=== PATIENT | female | born 1940 | race Caucasian/White ===

== ENCOUNTER 2018-05-06 00:52 | Inpatient (IN) | payer MEDICARE ==
[~2018-05-06] VITALS: Ht 160 cm; Wt 67.4 kg
[2018-05-06] VITALS (10 sets, daily range): BP systolic 142–154; BP diastolic 55–82
[~2018-05-06 00:52] MED LIST: ASPI-1265 PO; LOP25T PO; SIMV20TA5 PO
[2018-05-06] MEDS ORDERED: ATOR20TA PO (01:04)
[2018-05-06] MEDS ORDERED: LISI-600 PO (01:04)
[2018-05-06 01:12] LABS: BASOPHILS # (AUTO) 0.1 X10'3 (0-0.2); EOSINOPHILS # (AUTO) 0.2 X10'3 (0-0.9); EOSINOPHILS % (AUTO) 2.3 % (0-6); HEMATOCRIT 45.8 % (35.0-45.0); HEMOGLOBIN 14.8 g/dl (12.0-16.0); LYMPHOCYTES # (AUTO) 2.5 X10'3 (1.1-4.8); LYMPHOCYTES % (AUTO) 36.8 % (21-51); MEAN CORPUSCULAR HEMOGLOBIN 29.5 PG (27.0-31.0); MEAN CORPUSCULAR HGB CONC 32.2 % (33.0-36.5); MEAN CORPUSCULAR VOLUME 91.5 FL (78-98); MEAN PLATELET VOLUME 10.9 FL (7.4-10.4); MONOCYTES # (AUTO) 0.7 X10'3 (0-0.9); NEUTROPHILS # (AUTO) 3.3 X10'3 (1.8-7.7); NEUTROPHILS % (AUTO) 49.9 % (42-75); PLATELET COUNT 134 X10'3 (140-440); RED BLOOD COUNT 5.01 X10'6 (4.20-5.60); WHITE BLOOD COUNT 6.8 X10'3 (4.5-11.0)
[2018-05-06 01:21] LABS: PARTIAL THROMBOPLASTIN TIME 24 SECONDS (22-32); PROTHROMBIN TIME 10.3 SECONDS (9.0-12.0)
[2018-05-06 01:23] LABS: ALANINE AMINOTRANSFERASE 30 U/L (12-78); ALBUMIN 3.9 G/DL (3.4-5.0); ALBUMIN/GLOBULIN RATIO 1.1 (1.1-1.5); ALKALINE PHOSPHATASE 105 IU/L (46-116); ANION GAP 9 (8-16); ASPARTATE AMINO TRANSFERASE 21 U/L (10-37); BILIRUBIN,TOTAL 0.4 MG/DL (0.1-1.0); BLOOD UREA NITROGEN 29 MG/DL (7-18); BUN/CREATININE RATIO 26.1 (6.6-38.0); CALCIUM 10.6 MG/DL (8.5-10.1); CHLORIDE 104 MMOL/L (99-107); CREATININE 1.11 MG/DL (0.40-0.90); GLUCOSE 107 MG/DL (70-104); SODIUM 140 MMOL/L (135-145); TOTAL CARBON DIOXIDE 27.3 MMOL/L (24-32); TOTAL PROTEIN 7.3 G/DL (6.4-8.2); eGFR 48 ML/MIN
[2018-05-06] MEDS ORDERED: aspirin 81mg tab.chew PO ONE ×2 (01:40→02:05)
[2018-05-06] MEDS ORDERED: diphenhydrAMINE 25mg capsule PO PRN (02:05)
[2018-05-06] MEDS ORDERED: metoprolol tartrate 1mg/ml inj IV PRN (02:05)
[2018-05-06] MEDS ORDERED: HYDROcodone/acetaminophen 10/325mg tab PO PRN (02:05)
[2018-05-06] MEDS ORDERED: ondansetron/PF 4mg/2ml inj IV PRN (02:05)
[2018-05-06] MEDS ORDERED: acetaminophen 325mg tablet PO PRN ×2 (02:05)
[2018-05-06] MEDS ORDERED: acetaminophen 650mg rectal suppository RC PRN (02:05)
[2018-05-06] MEDS ORDERED: nitroGLYCERIN 0.4mg SUBLingual tab SL PRN (02:05)
[2018-05-06] MEDS ORDERED: regadenoson 0.4mg/5ml syringe IV ONE ×3 (02:05→10:40)
[2018-05-06] MEDS ORDERED: bisacodyl 10mg suppository rectal RC PRN (02:05)
[2018-05-06] MEDS ORDERED: diphenhydrAMINE 50 mg/ml inj IV PRN (02:05)
[2018-05-06] MEDS ORDERED: metoclopramide 5 mg/ml inj IV PRN (02:05)
[2018-05-06] MEDS ORDERED: morphine 4 MG/ML inj SYRINge IV PRN ×2 (02:05)
[2018-05-06] MEDS ORDERED: CAFFEINE CITRATE 60 MG/3 ML injection vial IV PRN (02:05)
[2018-05-06] MEDS ORDERED: magnesium hydroxide 30ml (MOM) UD suspension PO PRN (02:05)
[2018-05-06] MEDS ORDERED: HYDROmorphone inj. 0.5 MG/0.5 ML DISP.SYRIN IV PRN ×2 (02:05)
[2018-05-06] MEDS ORDERED: HYDROcodone/acetaminophen 5mg/325mg tablet PO PRN (02:05)
[2018-05-06] MEDS ORDERED: mag hydrox/Alum hydrox/simeth 30ml oral suspension PO PRN (02:05)
[2018-05-06 02:30] LABS: MAGNESIUM 2.1 MG/DL (1.5-2.4)
[2018-05-06] MEDS: dextrose 5%-1/2 normal saline 1,000 ML IV SCH ×2 (02:32→12:19)
[2018-05-06 02:51] LABS: HEMOGLOBIN A1C 5.6 % (4.5-6.2)
[2018-05-06] MEDS ORDERED: pantoprazole 40mg Tablet.DR PO SCH (07:30)
[2018-05-06] MEDS: nitroGLYCERIN 0.2mg/hour patch TD SCH (07:49)
[2018-05-06] MEDS ORDERED: metoprolol tartrate 12.5mg (1/2 tablet) PO SCH (08:00)
[2018-05-06] MEDS ORDERED: docusate sod 100mg capsule PO SCH (08:00)
[2018-05-06] MEDS ORDERED: enoxaparin 60mg/0.6ml syringe SUBCUT SCH (08:00)
[2018-05-06] MEDS ORDERED: levoFLOXACIN-Levaquin 750MG/D5 150 ML IV SCH (08:45)
[2018-05-06] MEDS ORDERED: CAFFEINE CITRATE 60 MG/3 ML injection vial IV ONE (10:33)
[2018-05-06] MEDS ORDERED: regadenoson 0.4mg/5ml syringe IV PRN (11:06)
[2018-05-06] MEDS ORDERED: levoFLOXACIN 750MG TABLET PO SCH ×2 (12:00→15:16)
[2018-05-06] MEDS ORDERED: LEVO750T46 PO (14:36)
[2018-05-06] MEDS ORDERED: lactobacillus rhamnosus 10,000 MMU CELLS/CAPSULE PO SCH (20:00)
[2018-05-06] MEDS ORDERED: temazepam 15mg capsule PO PRN (21:00)
[2018-05-07] MEDS ORDERED: atorvastatin 10mg tablet PO SCH (08:00)
== END 2018-05-06 15:30 | disposition home or self-care (01) | DRG 682 ==
LOC: ER 00:52 → ED HOLD 02:03 → PCU 3S 02:59
PROVIDERS: ADMIT Family Medicine; ATTEND Internal Medicine
PROC: 4A02XM4 Measurement of Cardiac Total Activity, External Approach (ICD-10-PCS; principal; 2018-05-06)
PROC: 3E073KZ Introduction of Other Diagnostic Substance into Coronary Artery, Percutaneous Approach (ICD-10-PCS; 2018-05-06)
DX: N17.9 Acute kidney failure, unspecified (principal); J18.9 Pneumonia, unspecified organism; I10 Essential (primary) hypertension; E78.5 Hyperlipidemia, unspecified; E78.00 Pure hypercholesterolemia, unspecified; I25.10 Atherosclerotic heart disease of native coronary artery without angina pectoris; Z95.1 Presence of aortocoronary bypass graft; Z90.710 Acquired absence of both cervix and uterus; Z90.49 Acquired absence of other specified parts of digestive tract; Z88.8 Allergy status to other drugs, medicaments and biological substances; Z79.899 Other long term (current) drug therapy; Z79.82 Long term (current) use of aspirin
CPT/HCPCS: 36415; 71045; 78452; 80053; 83036; 83735; 83880; 84484; 85025; 85610; 85730; 87070; 93005; 93017; 99285; A9500; J1650

== ENCOUNTER 2020-12-25 10:15 | Emergency (ER) | payer MEDICARE ==
[~2020-12-25] VITALS: Ht 160 cm; Wt 6.6 kg
[~2020-12-25 10:15] MED LIST changes: +ATOR20TA PO; +LEVO750T46 PO; +LISI20TA28 PO; -LOP25T PO; -SIMV20TA5 PO
[2020-12-25 11:22] LABS: CLARITY,URINE SLIGHTLY CLOUDY (Clear); COLOR,URINE YELLOW (Yellow); GLUCOSE, URINE NEGATIVE (Neg); KETONES,URINE NEGATIVE (Neg); LEUKOCYTE ESTERASE ,URINE NEGATIVE (Neg); NITRITES, URINE NEGATIVE (Neg); OCCULT BLOOD,URINE NEGATIVE (Neg); PROTEIN,URINE NEGATIVE (Neg); UA COLLECTION TYPE CLN CATCH MIDSTREAM; UROBILINOGEN,URINE 0.2 E.U/dL (0.2-1.0)
[2020-12-25 11:31] LABS: SQUAMOUS EPITHELIAL CELL,UR MODERATE /LPF (FEW)
[2020-12-25 11:31] LABS: BASOPHILS # (AUTO) 0.1 X10'3 (0-0.2); BASOPHILS % (AUTO) 0.6 % (0-1); EOSINOPHILS # (AUTO) 0.1 X10'3 (0-0.9); HEMATOCRIT 43.6 % (35.0-45.0); HEMOGLOBIN 14.5 g/dl (12.0-16.0); LYMPHOCYTES # (AUTO) 1.7 X10'3 (1.1-4.8); LYMPHOCYTES % (AUTO) 20.5 % (21-51); MEAN CORPUSCULAR HEMOGLOBIN 30.1 PG (27.0-31.0); MEAN CORPUSCULAR HGB CONC 33.2 g/dL (33.0-36.5); MEAN CORPUSCULAR VOLUME 90.5 FL (78-98); MEAN PLATELET VOLUME 10.4 FL (7.4-10.4); MONOCYTES # (AUTO) 0.9 X10'3 (0-0.9); MONOCYTES % (AUTO) 10.7 % (2-12); NEUTROPHILS # (AUTO) 5.5 X10'3 (1.8-7.7); NEUTROPHILS % (AUTO) 67.2 % (42-75); PLATELET COUNT 141 X10'3 (140-440); RED BLOOD COUNT 4.81 X10'6 (4.20-5.60); RED CELL DISTRIBUTION WIDTH 13.9 % (11.5-14.5); WHITE BLOOD COUNT 8.2 X10'3 (4.5-11.0)
[2020-12-25 11:33] LABS: WBC,URINE 0-4 /HPF (0-4)
[2020-12-25 11:34] LABS: BACTERIA,URINE FEW /HPF (Neg)
[2020-12-25 11:37] LABS: MUCUS STRANDS FEW /LPF (Neg); RBC,URINE 0-2 /HPF (0-2)
[2020-12-25 11:48] LABS: ALANINE AMINOTRANSFERASE 28 U/L (12-78); ALBUMIN 3.7 G/DL (3.4-5.0); ALBUMIN/GLOBULIN RATIO 1.2 (1.1-1.5); ALKALINE PHOSPHATASE 86 IU/L (46-116); ANION GAP 9 (8-16); ASPARTATE AMINO TRANSFERASE 17 U/L (10-37); BILIRUBIN,TOTAL 0.5 MG/DL (0.1-1.0); BLOOD UREA NITROGEN 30 MG/DL (7-18); BUN/CREATININE RATIO 28.8 (6.6-38.0); CALCIUM 11.4 MG/DL (8.5-10.1); CHLORIDE 107 MMOL/L (99-107); CREATININE 1.04 MG/DL (0.40-0.90); GLUCOSE 91 MG/DL (70-104); POTASSIUM 4.1 MMOL/L (3.5-5.1); SODIUM 145 MMOL/L (135-145); TOTAL CARBON DIOXIDE 29.3 MMOL/L (24-32); TOTAL PROTEIN 6.9 G/DL (6.4-8.2); eGFR 51 ML/MIN
[2020-12-25 12:40] VITALS: BP 155/67
== END 2020-12-25 13:04 | disposition home or self-care (01) ==
LOC: ER 10:15
DX: R10.32 Left lower quadrant pain (principal); I25.10 Atherosclerotic heart disease of native coronary artery without angina pectoris; E78.00 Pure hypercholesterolemia, unspecified; I10 Essential (primary) hypertension; Z90.49 Acquired absence of other specified parts of digestive tract; Z98.61 Coronary angioplasty status; Z90.710 Acquired absence of both cervix and uterus; Z79.82 Long term (current) use of aspirin; Z79.2 Long term (current) use of antibiotics; Z79.899 Other long term (current) drug therapy; Z88.8 Allergy status to other drugs, medicaments and biological substances
CPT/HCPCS: 36415; 74176; 80053; 81001; 84145; 85025; 99284

== ENCOUNTER 2021-02-07 11:41 | Emergency (ER) | payer MEDICARE ==
[~2021-02-07] VITALS: Ht 160 cm; Wt 65.9 kg
--- NOTE | 2021-02-07 12:20 | NUR ---
GERBER [phone]
[2021-02-07 12:41] LABS: BASOPHILS % (AUTO) 0.4 % (0-1); EOSINOPHILS # (AUTO) 0.1 X10'3 (0-0.9); HEMATOCRIT 41.9 % (35.0-45.0); HEMOGLOBIN 14.2 g/dl (12.0-16.0); LYMPHOCYTES # (AUTO) 1.9 X10'3 (1.1-4.8); MEAN CORPUSCULAR HGB CONC 33.8 g/dL (33.0-36.5); MEAN CORPUSCULAR VOLUME 91.7 FL (78-98); MEAN PLATELET VOLUME 10.1 FL (7.4-10.4); MONOCYTES # (AUTO) 0.7 X10'3 (0-0.9); MONOCYTES % (AUTO) 10.6 % (2-12); NEUTROPHILS # (AUTO) 4.2 X10'3 (1.8-7.7); PLATELET COUNT 118 X10'3 (140-440); RED BLOOD COUNT 4.57 X10'6 (4.20-5.60); RED CELL DISTRIBUTION WIDTH 13.9 % (11.5-14.5)
[2021-02-07] MEDS ORDERED: aspirin 81mg tab.chew PO ONE (12:55)
[2021-02-07 12:58] LABS: ALANINE AMINOTRANSFERASE 25 U/L (12-78); ALBUMIN 3.7 G/DL (3.4-5.0); ALBUMIN/GLOBULIN RATIO 1.2 (1.1-1.5); ALKALINE PHOSPHATASE 82 IU/L (46-116); ANION GAP 5 (8-16); ASPARTATE AMINO TRANSFERASE 19 U/L (10-37); BILIRUBIN,TOTAL 0.6 MG/DL (0.1-1.0); BLOOD UREA NITROGEN 24 MG/DL (7-18); BUN/CREATININE RATIO 22.6 (6.6-38.0); CHLORIDE 107 MMOL/L (99-107); CREATININE 1.06 MG/DL (0.40-0.90); GLUCOSE 95 MG/DL (70-104); SODIUM 142 MMOL/L (135-145); TOTAL PROTEIN 6.9 G/DL (6.4-8.2); eGFR 50 ML/MIN
--- NOTE | 2021-02-07 14:47 | NUR ---
no chest pain at this time.call light within reach.
[2021-02-07 16:19] VITALS: BP 144/71
== END 2021-02-07 16:20 | disposition home or self-care (01) ==
LOC: ER 11:41
DX: R07.89 Other chest pain (principal); R42 Dizziness and giddiness; R53.83 Other fatigue; I25.10 Atherosclerotic heart disease of native coronary artery without angina pectoris; Z95.1 Presence of aortocoronary bypass graft; E78.00 Pure hypercholesterolemia, unspecified; I10 Essential (primary) hypertension; Z90.49 Acquired absence of other specified parts of digestive tract; Z90.710 Acquired absence of both cervix and uterus; Z88.8 Allergy status to other drugs, medicaments and biological substances; Z88.2 Allergy status to sulfonamides; Z79.899 Other long term (current) drug therapy; Z79.82 Long term (current) use of aspirin
CPT/HCPCS: 36415; 71045; 80053; 83880; 84484; 85025; 93005; 99285

== ENCOUNTER 2021-05-10 18:25 | Emergency (ER) | payer MEDICARE ==
[~2021-05-10] VITALS: Ht 160 cm; Wt 65.9 kg
[2021-05-10] MEDS ORDERED: proparacaine 0.5% ophthalmic drops 15ml EACHEYE ONE (19:35)
--- NOTE | 2021-05-10 19:53 | NUR ---
pt is back from CT, amb with steady gait to restroom
--- NOTE | 2021-05-10 20:08 | NUR ---
PT IS 80 YO FEMALE C/O "THROBBING" TO LEFT SIDE OF FACE AND EYE, WOKE UP WITH PAIN TODAY, SENSITIVE TO LIGHT, VISION IS "FUZZY", +NAUSEA, RECEIVES A SHOT TO LEFT EYE ONCE A MONTH FOR PAST 2 YEARS FOR VEIN OCCLUSION, NO COMPLICATIONS EVER, PT RECEIVED SHOT ON MAY 07, TRIED CALLING EYE DOCTOR, NO ANSWER.
[2021-05-10 20:12] VITALS: BP 165/75
== END 2021-05-10 20:28 | disposition home or self-care (01) ==
LOC: ER 18:25
DX: H57.12 Ocular pain, left eye (principal); R51.9 Headache, unspecified; I25.10 Atherosclerotic heart disease of native coronary artery without angina pectoris; E78.00 Pure hypercholesterolemia, unspecified; I10 Essential (primary) hypertension; Z90.49 Acquired absence of other specified parts of digestive tract; Z95.5 Presence of coronary angioplasty implant and graft; Z90.710 Acquired absence of both cervix and uterus; Z88.1 Allergy status to other antibiotic agents; Z88.2 Allergy status to sulfonamides; Z88.8 Allergy status to other drugs, medicaments and biological substances; Z79.82 Long term (current) use of aspirin; Z79.2 Long term (current) use of antibiotics; Z79.899 Other long term (current) drug therapy
CPT/HCPCS: 70450; 99284

== ENCOUNTER 2021-11-19 08:08 | Observation (INO) | payer MEDICARE ==
[~2021-11-19] VITALS: Ht 160 cm; Wt 65.7 kg
[2021-11-19 09:44] LABS: BASOPHILS % (AUTO) 0.6 % (0-1); EOSINOPHILS # (AUTO) 0.2 X10'3 (0-0.9); EOSINOPHILS % (AUTO) 2.7 % (0-6); HEMATOCRIT 44.8 % (35.0-45.0); LYMPHOCYTES # (AUTO) 1.6 X10'3 (1.1-4.8); LYMPHOCYTES % (AUTO) 24.8 % (21-51); MEAN CORPUSCULAR HEMOGLOBIN 30.3 PG (27.0-31.0); MEAN CORPUSCULAR HGB CONC 33.5 g/dL (33.0-36.5); MEAN CORPUSCULAR VOLUME 90.4 FL (78-98); MEAN PLATELET VOLUME 10.2 FL (7.4-10.4); MONOCYTES # (AUTO) 0.7 X10'3 (0-0.9); MONOCYTES % (AUTO) 10.6 % (2-12); NEUTROPHILS % (AUTO) 61.3 % (42-75); PLATELET COUNT 146 X10'3 (140-440); RED BLOOD COUNT 4.96 X10'6 (4.20-5.60); RED CELL DISTRIBUTION WIDTH 14.4 % (11.5-14.5); WHITE BLOOD COUNT 6.6 X10'3 (4.5-11.0)
[2021-11-19 10:01] LABS: ALANINE AMINOTRANSFERASE 29 U/L (12-78); ALBUMIN 3.8 G/DL (3.4-5.0); ALBUMIN/GLOBULIN RATIO 1.1 (1.1-1.5); ALKALINE PHOSPHATASE 59 IU/L (46-116); ANION GAP 10 (8-16); ASPARTATE AMINO TRANSFERASE 24 U/L (10-37); BILIRUBIN,TOTAL 0.6 MG/DL (0.1-1.0); BLOOD UREA NITROGEN 29 MG/DL (7-18); BUN/CREATININE RATIO 24.4 (6.6-38.0); CALCIUM 10.6 MG/DL (8.5-10.1); CHLORIDE 106 MMOL/L (99-107); CREATININE 1.19 MG/DL (0.40-0.90); GLUCOSE 100 MG/DL (70-104); POTASSIUM 4.1 MMOL/L (3.5-5.1); SODIUM 142 MMOL/L (135-145); TOTAL CARBON DIOXIDE 26.2 MMOL/L (24-32); TOTAL PROTEIN 7.2 G/DL (6.4-8.2); eGFR 44 ML/MIN
[2021-11-19] MEDS ORDERED: iohexol 350MG/ML 100ml bottle IV ONE (11:03)
--- NOTE | 2021-11-19 11:35 | NUR ---
Patient ambulates to restroom without assistance; gait steady.
[2021-11-19] MEDS ORDERED: CLON0.1T2 PO (11:40)
--- NOTE | 2021-11-19 11:45 | NUR ---
Patient reports chest pain has subsided; back pain persists.
[2021-11-19] MEDS ORDERED: morphine 2 MG/ML inj. syringe IV PRN ×2 (12:55)
[2021-11-19] MEDS ORDERED: regadenoson 0.4mg/5ml syringe IV PRN (12:55)
[2021-11-19] MEDS ORDERED: nitroGLYCERIN 0.4mg SUBLingual tab SL PRN ×2 (12:55→15:35)
[2021-11-19] MEDS ORDERED: aminophylline 250mg/10ml inj. IV PRN (12:55)
[2021-11-19] MEDS ORDERED: mag hydrox/Alum hydrox/simeth 30ml oral suspension PO PRN (12:55)
[2021-11-19] MEDS ORDERED: magnesium hydroxide 30ml (MOM) UD suspension PO PRN (12:55)
[2021-11-19] MEDS ORDERED: metoprolol tartrate 1mg/ml inj IV PRN (12:55)
[2021-11-19] MEDS ORDERED: acetaminophen 325mg tablet PO PRN ×2 (12:55)
[2021-11-19] MEDS ORDERED: ondansetron/PF 4mg/2ml inj IV PRN (12:55)
[2021-11-19] MEDS ORDERED: TRIA15CR61 TOP (13:09)
[2021-11-19] MEDS ORDERED: NITR0.4T51 SL (13:09)
[2021-11-19] MEDS ORDERED: LISI10TA27 PO (13:09)
[2021-11-19] MEDS ORDERED: AZEL137S4 BOTHNARES (13:09)
--- NOTE | 2021-11-19 14:38 | NUR ---
Patient ineligible for stress test today due to coffee consumption this morning. Patient states she would like to go home and come back in the morning for stress test; Dr. Bateman paged.
[2021-11-19] MEDS: cloNIDine 0.1 mg tablet PO SCH (20:14)
[2021-11-19] MEDS: docusate sod 100mg capsule PO SCH (20:14)
--- NOTE | 2021-11-19 21:17 | NUR ---
ATTEMPTED TO GIVE REPORT TO RN. RN WILL CALL BACK IN 10 MINUTES.
--- NOTE | 2021-11-19 21:53 | NUR ---
NO CALL RECIEVED. ATTEMPTED TO GIVE REPORT AGAIN. UNABLE TO REACH RN.
--- NOTE | 2021-11-19 21:59 | NUR ---
GAVE REPORT. PT WILL BE TAKEN UP ON A MONITOR.
--- NOTE | 2021-11-19 22:40 | NUR ---
Report received from GIOVANNA Camacho from ER regarding the patient, DARIO GROVE, 81 y/o, F admitted by YOANNA CAMPOS MD, was given written information regarding hospital policies, unit procedures and contact persons. Patient denies chest pain. No distress noted. Vital signs stable: Temp: 97.7, HR: 76, Resp: 18, O2Sat: 95%, BP: 116/63. See Admission information.
[2021-11-20] VITALS (13 sets, daily range): BP systolic 122–169; BP diastolic 47–78
[2021-11-20 06:06] LABS: BASOPHILS # (AUTO) 0.1 X10'3 (0-0.2); BASOPHILS % (AUTO) 0.8 % (0-1); EOSINOPHILS # (AUTO) 0.2 X10'3 (0-0.9); EOSINOPHILS % (AUTO) 3.4 % (0-6); HEMATOCRIT 42.5 % (35.0-45.0); HEMOGLOBIN 14.3 g/dl (12.0-16.0); LYMPHOCYTES % (AUTO) 29.1 % (21-51); MEAN CORPUSCULAR HEMOGLOBIN 30.1 PG (27.0-31.0); MEAN CORPUSCULAR HGB CONC 33.6 g/dL (33.0-36.5); MEAN CORPUSCULAR VOLUME 89.7 FL (78-98); MEAN PLATELET VOLUME 10.5 FL (7.4-10.4); MONOCYTES # (AUTO) 0.8 X10'3 (0-0.9); MONOCYTES % (AUTO) 12.3 % (2-12); NEUTROPHILS # (AUTO) 3.8 X10'3 (1.8-7.7); NEUTROPHILS % (AUTO) 54.4 % (42-75); PLATELET COUNT 144 X10'3 (140-440); RED BLOOD COUNT 4.74 X10'6 (4.20-5.60); RED CELL DISTRIBUTION WIDTH 14.7 % (11.5-14.5); WHITE BLOOD COUNT 6.9 X10'3 (4.5-11.0)
--- NOTE | 2021-11-20 06:27 | NUR ---
Patient in room PCU 3015. I have received report from Xenia HEREDIA and had the opportunity to ask questions and assume patient care.
[2021-11-20 06:29] LABS: ALBUMIN 3.5 G/DL (3.4-5.0); ANION GAP 12 (8-16); BLOOD UREA NITROGEN 37 MG/DL (7-18); BUN/CREATININE RATIO 31.1 (6.6-38.0); CALCIUM 10.2 MG/DL (8.5-10.1); CHLORIDE 108 MMOL/L (99-107); CREATININE 1.19 MG/DL (0.40-0.90); GLUCOSE 100 MG/DL (70-104); POTASSIUM 3.9 MMOL/L (3.5-5.1); SODIUM 144 MMOL/L (135-145); TOTAL CARBON DIOXIDE 24.3 MMOL/L (24-32); eGFR 44 ML/MIN
--- NOTE | 2021-11-20 06:34 | NUR ---
Problems reprioritized. Patient report given, questions answered & plan of care reviewed with GIOVANNA Lei.
[2021-11-20] MEDS ORDERED: atorvastatin 20mg tablet PO SCH (08:00)
[2021-11-20] MEDS ORDERED: lisinopril 10 MG tablet PO SCH (08:00)
[2021-11-20] MEDS: docusate sod 100mg capsule PO SCH (09:53)
[2021-11-20] MEDS: cloNIDine 0.1 mg tablet PO SCH (09:54)
== END 2021-11-20 14:15 | disposition home or self-care (01) ==
LOC: ER 08:08 → ED HOLD 12:56 → PCU 3S 22:10
PROVIDERS: ADMIT Internal Medicine; ATTEND Internal Medicine
DX: R07.89 Other chest pain (principal); I25.10 Atherosclerotic heart disease of native coronary artery without angina pectoris; I24.9 Acute ischemic heart disease, unspecified; E78.00 Pure hypercholesterolemia, unspecified; I10 Essential (primary) hypertension; E27.8 Other specified disorders of adrenal gland; K76.0 Fatty (change of) liver, not elsewhere classified; Z90.49 Acquired absence of other specified parts of digestive tract; Z90.710 Acquired absence of both cervix and uterus; Z95.1 Presence of aortocoronary bypass graft; Z88.2 Allergy status to sulfonamides; Z88.8 Allergy status to other drugs, medicaments and biological substances; Z91.011 Allergy to milk products; Z79.899 Other long term (current) drug therapy; Z87.891 Personal history of nicotine dependence
CPT/HCPCS: 36415; 71045; 71275; 74174; 78452; 80048; 80053; 83880; 84484; 85025; 87081; 87635; 93005; 93017; 99285; A9500; C9803; G0378; J2785; Q9967

== ENCOUNTER 2023-08-27 08:55 | Outpatient (CLI) | payer MEDICARE ==
[~2023-08-27 08:55] MED LIST changes: -ASPI-1265 PO; +AZEL137S4 BOTHNARES; +CLON0.1T2 PO; -LEVO750T46 PO; +LISI10TA27 PO; -LISI20TA28 PO; +NITR0.4T51 SL; +TRIA15CR61 TOP; +iohexol 300mg/ml 100ml inj. ONE
== END 2023-08-27 23:59 | disposition home or self-care (01) ==
LOC: RAD 08:55
PROVIDERS: ATTEND Family Medicine
DX: K52.9 Noninfective gastroenteritis and colitis, unspecified (principal); R10.9 Unspecified abdominal pain; Z90.49 Acquired absence of other specified parts of digestive tract
CPT/HCPCS: 74177; J3490; Q9967

== ENCOUNTER 2025-03-12 02:53 | Emergency (ER) | payer MEDICARE ==
[~2025-03-12] VITALS: Ht 160 cm; Wt 65.9 kg
[~2025-03-12 02:53] MED LIST changes: -iohexol 300mg/ml 100ml inj. ONE
--- NOTE | 2025-03-12 03:46 | Physician Documentation ---
History of Present Illness ~ Chief Complaint: Wrist pain Stated Complaint: HURT WRIST Time Seen by MD: 03:45 Primary Medical Doctor: Hakan Otoole HPI 84-year-old female who presents with left wrist pain. She tells me that earlier this evening, she was carrying things in her hands, and try to open a sliding door with her left wrist and hand. Following this she developed pain in the left wrist. She reports generalized pain diffusely in the wrist, worse with movement and palpation. The wrist feels swollen. She tried ice, topical treatments and a dose of Mobic. She states the pain was too bad the sleep. She tried using a wrist brace. She denies any other associated injuries or concerns. No fevers or infectious symptoms. No numbness or weakness to the hand. She is left-handed. Tetanus within 5 years: No (UNK) Medication Reconciliation Allergies: Coded Allergies: Metronidazole HCl (Verified Allergy, Intermediate, HIVES, 05/06/18) alendronate sodium (Verified Allergy, Intermediate, ITCHING,ACHING MUSCLES, 05/06/18) lactose (Verified Allergy, Intermediate, runny, diarrhea, cramping, 05/06/18) ciprofloxacin HCl (Verified Allergy, Mild, ITCHING, 05/06/18) Sulfa (Sulfonamide Antibiotics) (Unverified Allergy, Unknown, 02/07/21) levofloxacin (Unverified Allergy, Unknown, 02/07/21) Scheduled Atorvastatin Calcium* (Lipitor*), 1 TABLET PO DAILY, (Reported) Clonidine HCl (Clonidine HCl), 1 TAB PO BID, (Reported) Lisinopril (Lisinopril), 1 TAB PO DAILY, (Reported) Triamcinolone Acetonide 0.5% Crm* (Kenalog 0.5% Crm*), 1 APPLIC TOP BID, (Reported) Scheduled PRN Azelastine HCl (Azelastine HCl), 1 SPRAY BOTHNARES BID PRN for NASAL CONGESTION, (Reported) Nitroglycerin SL* (Nitrostat SL*), 1 TAB SL Q5MIN PRN for Chest pain Q5min PRNx3-call MD, (Reported) Past Medical History Past Medical History: Coronary Artery Disease, High Cholesterol, Hypertension, Diverticulitis Past Surgical History: cholecystectomy, colectomy, coronary bypass surgery, hysterectomy Alcohol Use: None Drug Use: none Lives In: Home Review of Systems Constitutional: Denies: fever Musculoskeletal: Reports: joint pain, joint swelling Physical Exam Vital Signs: Temperature: 98.0, Heart Rate: 58, Respiratory Rate: 16, BP: 176/80, Pulse Oximetry: 98, Weight: 65.910 Oxygen Flow Rate: 0 Physical Exam General: This is a pleasant and overall well-appearing elderly female, at bedside Heart: Regular rate and rhythm, normal-appearing peripheral perfusion Lungs: normal work of breathing, normal oxygen saturation on room air Extremities: Warm and well-perfused Left upper extremity: The patient has tenderness to palpation diffusely around the left wrist including on the radial and ulnar side. She seems the most tender at the base of the thumb on the radial side. No significant surrounding erythema or other skin changes. No focal bony point tenderness on palpation of the bones of the elbow, or hand. No snuffbox tenderness. Sensation grossly intact to light touch in the hand. Neuro: Alert and oriented, no focal deficits Psychiatric: Calm and cooperative with exam Progress Results/Orders Results/Orders Orders - LOIDA WATKINS MD Wrist, Complete (3vw Min) (03/12/25 03:20) Completed Orders - LOIDA WATKINS MD Wrist, Complete (3vw Min) (03/12/25 03:20) Hydrocodone/Apap 5/325mg Tab ([place] 5/32 (03/12/25 04:35) Acetaminophen 325mg Tablet (Tylenol Tabl (03/12/25 04:35) Medications Received in ER Medications (Trade) Dose Ordered Sig/Soto Route PRN Reason Start Time Stop Time Status Last Admin Dose Admin ([place] 5/325mg tablet) 1 tab ONCE ONCE PO 03/12/25 04:35 03/12/25 04:36 DC 03/12/25 04:38 1 TAB (Tylenol tablet) 650 mg ONCE ONCE PO 03/12/25 04:35 03/12/25 04:36 DC 03/12/25 04:38 650 MG Vital Signs 03/12/25 02:57 Temp 98.0 Pulse 58 Resp 16 B/P (MAP) 176/80 Pulse Ox 98 O2 Flow Rate 0 EKG/XRAY/CT/US/VASC/MRI Bone/Soft Tissue X-Ray (Ext.) : Additional Comment I personally reviewed the x-ray, and it shows: No acute fracture or dislocation. She does have joint space narrowing at the base of the thumb. Medical Decision Making Additional Comment Differential includes wrist sprain, fracture, dislocation, chronic arthritis, arthritis flare, doubt septic arthritis Assessment The patient presents with generalized left wrist pain and swelling after a nontraumatic event. On exam she has findings consistent with a wrist sprain. No findings to suggest an infection or septic arthritis. X-ray does not show a fracture other acute abnormality. She will be given symptomatic treatment and discharged with home care instructions. I do not feel that any further workup or testing is indicated. Departure Time of Disposition: 04:34 Disposition: 01 HOME / SELF CARE / HOMELESS Impression: Primary Impression: Left wrist sprain Condition: Stable Discharge Instructions: Wrist Sprain, Adult Referrals: NO PRIMARY CARE PROVIDER (PCP) Education Educated: Patient, Family Educated regarding: diagnosis, treatment, need for follow up Signature Scribe Signature: na Attestation: LOIDA Almaguer MD March 12, 2025 03:46
[2025-03-12] MEDS: acetaminophen 325mg tablet PO ONE (04:38)
[2025-03-12] MEDS: HYDROcodone/acetaminophen 5mg/325mg tablet PO ONE (04:38)
[2025-03-12 04:53] VITALS: BP 170/76; PULSE 90; RESP 16; TEMP 98.6; O2SAT 99
--- NOTE | 2025-03-12 05:36 | RADIOLOGY REPORT ---
Clinical History LEFT WRIST PAIN, NKI Comparison None Without Contrast DARIO GROVE, [id number] X-ray wrist Clinical history: 84-year-old pain Findings: No acute fracture. There is osteoporosis. Impression: No evidence of fracture. This report was electronically signed by Tristan Wilkins MD on 03/12/2025 5:33:58 AM.
== END 2025-03-12 04:55 | disposition home or self-care (01) ==
LOC: ER 02:54
DX: S63.502A Unspecified sprain of left wrist, initial encounter (principal); E78.00 Pure hypercholesterolemia, unspecified; I10 Essential (primary) hypertension; I25.10 Atherosclerotic heart disease of native coronary artery without angina pectoris; Z88.1 Allergy status to other antibiotic agents; Z88.2 Allergy status to sulfonamides; Z88.8 Allergy status to other drugs, medicaments and biological substances; Z90.49 Acquired absence of other specified parts of digestive tract; Z90.710 Acquired absence of both cervix and uterus; Z95.1 Presence of aortocoronary bypass graft; X58.XXXA Exposure to other specified factors, initial encounter; Y93.89 Activity, other specified; Y92.89 Other specified places as the place of occurrence of the external cause; Y99.8 Other external cause status
CPT/HCPCS: 73110; 99283

== ENCOUNTER 2025-05-30 12:35 | Emergency (ER) | payer MEDICARE ==
[~2025-05-30] VITALS: Ht 160 cm; Wt 68.2 kg
--- NOTE | 2025-05-30 12:52 | ELECTROCARDIOGRAPH REPORT ---
[facility] Test Date: 2025-05-30 Test Time: 12:51:33 Pat Name: DARIO GROVE Department: EMERGENCY ROOM [id number] Room: Gender: F Financial Wellness Coach: AMADOU : 1940 Requested By: CRISTINA GOODRICH Order Number: [id number] Reading MD: Measurements Intervals [place] Rate: 69 P: 38 AL: 159 QRS: 1 QRSD: 145 T: -1 QT: 445 QTc: 477 Interpretive Statements Sinus rhythm Probable left atrial enlargement Right bundle branch block Please click the below link to view image of tracing.
[2025-05-30 13:02] LABS: MEAN PLATELET VOLUME 9.7 FL (7.4-10.4); RED CELL DISTRIBUTION WIDTH 15.2 % (11.5-14.5)
[2025-05-30 13:26] LABS: CREATININE 1.18 MG/DL (0.40-0.90); PRO BRAIN NATRIURETIC PEPTIDE 490 PG/ML (0-450); TOTAL CARBON DIOXIDE 24.9 MMOL/L (24-32); eCRCL 30 ML/MIN; eGFR 44 ML/MIN
--- NOTE | 2025-05-30 14:15 | Physician Documentation ---
History of Present Illness Fatigue Chief Complaint: Weakness Stated Complaint: NAUSEA Time Seen by MD: 13:38 OK to notify your PCP?: Yes Primary Medical Doctor: Hakan Otoole HPI Patient is an 84-year-old female that presents to the emergency department for evaluation of progressive weakness and lethargy over the last several months up to 6 months. Patient has no other physical complaints at this time but does report concern for increased weakness. Medication Reconciliation Allergies: Coded Allergies: Metronidazole HCl (Verified Allergy, Intermediate, HIVES, 05/30/25) alendronate sodium (Verified Allergy, Intermediate, ITCHING,ACHING MUSCLES, 05/30/25) lactose (Verified Allergy, Intermediate, runny, diarrhea, cramping, 05/30/25) ciprofloxacin HCl (Verified Allergy, Mild, ITCHING, 05/30/25) Sulfa (Sulfonamide Antibiotics) (Unverified Allergy, Unknown, 05/30/25) levofloxacin (Unverified Allergy, Unknown, 05/30/25) Scheduled Atorvastatin Calcium* (Lipitor*), 1 TABLET PO DAILY, (Reported) Clonidine HCl (Clonidine HCl), 1 TAB PO BID, (Reported) Lisinopril (Lisinopril), 1 TAB PO DAILY, (Reported) Nitrofurantoin Monohyd/M-Cryst (Macrobid 100 mg Capsule), 1 CAP PO Q6H Triamcinolone Acetonide 0.5% Crm* (Kenalog 0.5% Crm*), 1 APPLIC TOP BID, (Reported) Scheduled PRN Azelastine HCl (Azelastine HCl), 1 SPRAY BOTHNARES BID PRN for NASAL CONGESTION, (Reported) Nitroglycerin SL* (Nitrostat SL*), 1 TAB SL Q5MIN PRN for Chest pain Q5min PRNx3-call MD, (Reported) Past Medical History Past Medical History: Coronary Artery Disease, High Cholesterol, Hypertension, Diverticulitis Past Surgical History: cholecystectomy, colectomy, coronary bypass surgery, hysterectomy Alcohol Use: None Drug Use: none Lives In: Home Physical Exam Vital Signs: Temperature: 98.4, Source: Temporal, Heart Rate: 72, Respiratory Rate: 15, BP: 140/73, Pulse Oximetry: 95, Weight: 68.200 Oxygen Flow Rate: 0 Progress Results/Orders Results/Orders Orders - COLLIN,FARZANA A AS400 DEVELOPER Chest,Single View (05/30/25 15:02) Cult Urine + [place] [address] (05/30/25 17:58) Completed Orders - FARZANA FALL A AS400 DEVELOPER Chest,Single View (05/30/25 15:02) Ua W/Microscopic, Cult If Ind (05/30/25 16:57) Vital Signs 05/30/25 05/30/25 05/30/25 05/30/25 12:42 13:15 14:06 15:08 Temp 98.4 98.4 Pulse 66 72 65 Resp 16 18 15 20 B/P (MAP) 159/76 140/73 (95) 161/76 (104) Pulse Ox 97 95 97 O2 Flow Rate 0 0 05/30/25 05/30/25 17:00 18:30 Temp 98.4 98.4 Pulse 64 71 Resp 15 15 B/P (MAP) 167/90 (115) 142/71 (94) Pulse Ox 100 100 O2 Flow Rate 0 0 Laboratory Tests Test 05/30/25 12:54 05/30/25 16:57 White Blood Count 7.0 Red Blood Count 4.85 Hemoglobin 14.3 Hematocrit 42.7 Mean Corpuscular Volume 88.2 Mean Corpuscular Hemoglobin 29.5 Mean Corpuscular Hemoglobin Concent 33.5 Red Cell Distribution Width 15.2 H Platelet Count 128 L Mean Platelet Volume 9.7 Neutrophils (%) (Auto) 65.7 Lymphocytes (%) (Auto) 20.7 L Monocytes (%) (Auto) 11.9 Eosinophils (%) (Auto) 1.0 Basophils (%) (Auto) 0.7 Neutrophils # (Auto) 4.6 Lymphocytes # (Auto) 1.4 Monocytes # (Auto) 0.8 Eosinophils # (Auto) 0.1 Basophils # (Auto) 0.0 CBC Comment Sodium Level 142 Potassium Level 3.6 Chloride Level 107 Carbon Dioxide Level 24.9 Anion Gap 10 Blood Urea Nitrogen 24 H Creatinine 1.18 H Estimated GFR/1.73 m2 44 BUN/Creatinine Ratio 20.3 H Glucose Level 128 H Calcium Level 9.6 Total Bilirubin 0.5 Aspartate Amino Transf (AST/SGOT) 25 Alanine Aminotransferase (ALT/SGPT) 29 Alkaline Phosphatase 63 Troponin I High Sensitivity 8 Pro-B-Type Natriuretic Peptide 490 H Total Protein 6.9 Albumin 3.4 Globulin 3.5 Albumin/Globulin Ratio 1.0 L Chemistry Comments Urine Specimen Description Voided Urine Color Yellow Urine Clarity Clear Urine pH 6.0 Urine Specific [place] 1.015 Urine Protein Negative Urine Glucose (UA) Negative Urine Ketones Negative Urine Occult Blood Negative Urine Nitrite Negative Urine Bilirubin Negative Urine Urobilinogen 0.2 Urine Leukocyte Esterase Small H Urine RBC 0-2 Urine WBC 5-10 H Urine Squamous Epithelial Cells None seen Urine Calcium Oxalate Crystals 4+ Urine Bacteria Few Urine Mucus None seen Urine Culture Indicated Indicated Volume Urine Centrifuged 10 ml Urine Comment Medical Decision Making Findings Patient presents today for 3-6 months of increased weakness. Patient denies shortness of breath chest pain lower extremity edema fevers nausea vomiting or diarrhea. At this time all labs and diagnostics show low concern for any cardiac or respiratory cause at this time. Patient reports that she will follow up with her primary care provider again regarding these persistent symptoms. Diagnostics did however demonstrate acute uncomplicated cystitis. No systemic symptoms. Not septic. Well appearing. Low suspicion for acute pyelonephritis given lack of fever, CVAT, or systemic features. Low suspicion for kidney stone or infected stone.. Low suspicion for ovarian torsion, PID, or appendicitis. Patient will be prescribed Macrodantin. Follow up with her primary care provider. Patient will return to the emergency department if she has any worsening or recurrent symptoms or any additional concerning symptoms that we discussed here today. Differential Dx:Considerations: Include: anemia, CVA, dehydration, dysrhythmia, electrolyte imbalance, encephalopathy, Guillain-Moffett, hypoglycemia, hypotensio n, hypovolemia, labyrinthitis, Meniere's disease, myasathenia gravis, myocardial infarction, pulmonary embolus, renal failure, respiratory failure, TIA, VBI, vertigo central, vertigo peripheral, vestibular neuronitis, other Departure Disposition: 01 HOME / SELF CARE / HOMELESS Impression: Primary Impression: Acute urinary tract infection Additional Impression: Fatigue Condition: Stable Discharge Instructions: Urinary Tract Infection, Adult Additional Instructions: Patient presents today for 3-6 months of increased weakness. Patient denies shortness of breath chest pain lower extremity edema fevers nausea vomiting or diarrhea. At this time all labs and diagnostics show low concern for any cardiac or respiratory cause at this time. Patient reports that she will follow up with her primary care provider again regarding these persistent symptoms. Diagnostics did however demonstrate acute uncomplicated cystitis. No systemic symptoms. Not septic. Well appearing. Low suspicion for acute pyelonephritis given lack of fever, CVAT, or systemic features. Low suspicion for kidney stone or infected stone.. Low suspicion for ovarian torsion, PID, or appendicitis. Patient will be prescribed Macrodantin. Follow up with her primary care provider. Patient will return to the emergency department if she has any worsening or recurrent symptoms or any additional concerning symptoms that we discussed here today. Referrals: NO PRIMARY CARE PROVIDER (PCP) Prescriptions Nitrofurantoin Monohyd/M-Cryst (Macrobid 100 mg Capsule) 100 Mg Capsule 1 CAP PO Q6H for 7 Days, #14 CAP 0 Refills Prov: FARZANA FALL 05/30/25 Education Educated: Patient Educated regarding: diagnosis, treatment, need for follow up Signature Scribe Signature: A Attestation: Scribed for Farzana Fall by IVELISSE Cade . 05/30/25 18:33 FARZANA FALL May 30, 2025 14:15
--- NOTE | 2025-05-30 15:21 | RADIOLOGY REPORT ---
CHEST RADIOGRAPH Indication: fatigue Technique: Single frontal view of the chest was obtained COMPARISON: CHEST,SINGLE VIEW on DOS: 11/19/21, CHEST,SINGLE VIEW on DOS: 02/07/21 FINDINGS: Lines and Tubes: Median sternotomy Lungs: Clear Pleura: No effusion. No pneumothorax. Cardiomediastinal contours: Cardiomegaly Bones: Unremarkable IMPRESSION: Increased interstital prominence. This may represent pulmonary vascular congestion and/or viral pneum onia. Clinical correlation advised.
[2025-05-30 17:51] LABS: LEUKOCYTE ESTERASE ,URINE SMALL (Neg); NITRITES, URINE NEGATIVE (Neg); OCCULT BLOOD,URINE NEGATIVE (Neg)
[2025-05-30 17:56] LABS: UA COLLECTION TYPE VOIDED
[2025-05-30 17:57] LABS: CAL OXALATE CRYSTALS 4+ /HPF (NEGATIVE); MUCUS STRANDS NONE SEEN /LPF (Neg); SQUAMOUS EPITHELIAL CELL,UR NONE SEEN /LPF (FEW)
[2025-05-30 18:30] VITALS: BP 142/71; PULSE 71; RESP 15; TEMP 98.4; O2SAT 100
[2025-05-30] MEDS ORDERED: NITR100C6 PO (18:31)
== END 2025-05-30 18:50 | disposition home or self-care (01) ==
LOC: ER 12:36
DX: N39.0 Urinary tract infection, site not specified (principal); R53.83 Other fatigue; R53.1 Weakness; I10 Essential (primary) hypertension; E78.00 Pure hypercholesterolemia, unspecified; R06.02 Shortness of breath; I25.10 Atherosclerotic heart disease of native coronary artery without angina pectoris; Z88.1 Allergy status to other antibiotic agents; Z88.2 Allergy status to sulfonamides; Z88.8 Allergy status to other drugs, medicaments and biological substances; Z90.49 Acquired absence of other specified parts of digestive tract; Z90.710 Acquired absence of both cervix and uterus; Z95.1 Presence of aortocoronary bypass graft
CPT/HCPCS: 36415; 71045; 80053; 81001; 83880; 84484; 85025; 87088; 93005; 99285